=== PATIENT | female | born 1990 | race Two or more races ===

== ENCOUNTER 2019-10-04 18:56 | Emergency (ER) | payer OTHER ==
[~2019-10-04] VITALS: Ht 160 cm; Wt 74.4 kg
--- NOTE | 2019-10-04 19:07 | NUR ---
Dr. Malcolm on bedside for MSE.
[2019-10-04] MEDS ORDERED: LIDOCAINE 1%-EPI 1:100,000 20 ML VIAL IJ ONE (19:15)
[2019-10-04] MEDS ORDERED: NEOMY/BACITRA/POLYMYXIN B OINT UD PACKET TP ONE ×2 (19:15→19:16)
[2019-10-04] MEDS ORDERED: TDAP DIPH,PERTUSS,TET VAC/PF 0.5 ML DISP.SYRIN IM ONE ×2 (19:15→19:16)
[2019-10-04] MEDS ORDERED: IBUPROFEN 600 MG TABLET PO ONE (19:15)
[2019-10-04] MEDS ORDERED: IBUPROFEN 600 MG TABLET ONE (19:16)
--- NOTE | 2019-10-04 19:53 | NUR ---
Patient discharged to home in stable condition. Written and verbal after care instructions given. Patient verbalizes understanding of instructions. Stressed follow up or return to ER for worsening s/s. Pt ambulated out of the ER with steady gait. All belongings with pt.
[2019-10-04 19:59] VITALS: BP 112/67
== END 2019-10-04 19:53 | disposition home or self-care (01) ==
LOC: ER 19:03
PROC: 0HQHXZZ Repair Right Upper Leg Skin, External Approach (ICD-10-PCS; principal; 2019-10-04)
DX: S71.111A Laceration without foreign body, right thigh, initial encounter (principal); W54.0XXA Bitten by dog, initial encounter; Y92.039 Unspecified place in apartment as the place of occurrence of the external cause; S70.312A Abrasion, left thigh, initial encounter
CPT/HCPCS: 99283; 12002; 90471; 90715; J3490; A4217; A4663

== ENCOUNTER 2019-10-21 17:08 | Emergency (ER) | payer OTHER ==
[~2019-10-21] VITALS: Ht 160 cm; Wt 72.6 kg
--- NOTE | 2019-10-21 17:40 | NUR ---
Patient discharged to home in stable condition. Written and verbal after care instructions given. Patient verbalizes understanding of instructions.pt walks in steady gait. Stressed follow up or return to ER for worsening s/s.
== END 2019-10-21 17:40 | disposition home or self-care (01) ==
LOC: ER 17:14
DX: S71.111D Laceration without foreign body, right thigh, subsequent encounter (principal); W45.8XXD Other foreign body or object entering through skin, subsequent encounter
CPT/HCPCS: A4663

== ENCOUNTER 2021-07-21 14:49 | Emergency (ER) | payer OTHER ==
[~2021-07-21] VITALS: Ht 160 cm; Wt 76.2 kg
[2021-07-21] MEDS ORDERED: ONDANSETRON 4 MG/2 ML VIAL IV ONE (15:00)
[2021-07-21] MEDS ORDERED: IV NORMAL SALINE 1000 ML BAG IV ONE (15:00)
[2021-07-21 15:07] LABS: HEMATOCRIT 44.7 % (31.2-41.9); MEAN CORPUSCULAR HEMOGLOBIN 32.3 uug (24.7-32.8); MEAN CORPUSCULAR VOLUME 94.5 fL (75.5-95.3); PLATELET COUNT (AUTO) 321 K/uL (179-408)
[2021-07-21] MEDS ORDERED: ONDANSETRON 4 MG/2 ML VIAL ONE (15:07)
[2021-07-21 15:20] LABS: CREATININE 0.9 mg/dL (0.6-1.3); POTASSIUM 3.7 mmol/L (3.5-5.1)
[2021-07-21 15:26] LABS: BILIRUBIN,DIRECT 0.1 mg/dL (0.0-0.2); BILIRUBIN,TOTAL 0.4 mg/dL (0.2-1.0); TOTAL PROTEIN, SERUM 8.2 g/dL (6.4-8.2)
[2021-07-21] MEDS ORDERED: ONDA4TAB5 PO (15:27)
[2021-07-21] MEDS ORDERED: FAMO-132 PO (15:27)
[2021-07-21] MEDS ORDERED: FAMOTIDINE. 20 MG/2 ML VIAL IV ONE ×2 (15:30→15:54)
[2021-07-21 16:23] VITALS: BP 116/78
== END 2021-07-21 16:24 | disposition home or self-care (01) ==
LOC: ER 14:49
DX: F10.239 Alcohol dependence with withdrawal, unspecified (principal); R11.2 Nausea with vomiting, unspecified; R20.2 Paresthesia of skin; Z79.899 Other long term (current) drug therapy; Y90.9 Presence of alcohol in blood, level not specified
CPT/HCPCS: 80048; 80076; 83690; 85025; 96361; 96374; 96375; 99284; J2405; J3490; 36415; A4663; J7030